=== PATIENT | female | born 1985 ===

== ENCOUNTER 2019-03-28 06:39 | Day surgery (SDC) | payer OTHER ==
[~2019-03-28 06:39] MED LIST: SYNTHROID88 MCG PO
== END 2019-03-28 18:55 | disposition home or self-care (01) ==
LOC: CIR.AMB 06:39
DX: D06.7 Carcinoma in situ of other parts of cervix (principal)

== ENCOUNTER 2019-07-09 21:18 | Emergency (ER) | payer OTHER ==
[~2019-07-09] VITALS: Ht 157.5 cm; Wt 64.4 kg
== END 2019-07-09 23:48 | disposition home or self-care (01) ==
LOC: ER 21:18
DX: R10.13 Epigastric pain (principal)